=== PATIENT | female | born 1995 | race Caucasian/White ===

== ENCOUNTER 2021-09-17 11:04 | Emergency (ER) | payer OTHER, SELFPAY ==
[2021-09-17 11:22] VITALS: BP 116/68; PULSE 60; RESP 14; TEMP 36.8; O2SAT 98; BMI 25.8
[2021-09-17 12:35] VITALS: BP 117/64; PULSE 47; O2SAT 100
--- NOTE | 2021-09-17 13:15 | ED_ITS ---
HPI - Wound/Laceration <Anthony Braun PA-C - Last Filed: 09/17/21 19:12> General Chief Complaint: Wound/Laceration Stated Complaint: Hit left eye with piece of handle Time Seen by Provider: 09/17/21 12:54 Source: patient Mode of arrival: Ambulatory History of Present Illness HPI narrative: Patient is a 25-year-old female presenting to the emergency department today for an evaluation of a left eyebrow laceration. Patient states that she was struck on the left eyebrow by a metal handle today while at work at approximately 1000 today. 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 She states she did not lose consciousness as a result of the injury and denies pain or injury elsewhere. Of note, patient denies being anticoagulated daily. No fevers, chills, chest pain, cough, shortness of breath, nausea, vomiting, diarrhea, dysuria, hematuria, abdominal pain, constipation, changes in vision, eye irritation, or any other concerning symptoms reported. No further concerns were voiced at this time. Related Data Allergies Allergy/AdvReac Type Severity Reaction Status Date / Time No Known Drug Allergies Allergy Verified 09/17/21 11:22 Review of Systems <Anthony Braun PA-C - Last Filed: 09/17/21 19:12> Constitutional Constitutional: Denies chills, Denies fatigue, Denies fever(s), Denies frequent falls, Denies lethargy and Denies weakness Eyes Eyes: Denies change in vision, Denies eye discharge, Denies irritation and Denies loss of vision ENT Ears, Nose, Mouth, and Throat: Denies dizziness and Denies neck pain Cardiovascular Cardiovascular: Denies chest pain, Denies irregular heart rhythm, Denies lightheadedness, Denies palpitations, Denies dyspnea, Denies dyspnea on exertion and Denies orthopnea Respiratory Respiratory: Denies cough, Denies dyspnea, Denies dyspnea on exertion and Denies wheezing Gastrointestinal Gastrointestinal: Denies abdominal pain, Denies change in bowel habits, Denies diarrhea, Denies nausea and Denies vomiting Genitourinary Genitourinary: Denies hematuria, Denies flank pain, Denies urinary incontinence and Denies urinary urgency Musculoskeletal Musculoskeletal: Denies back pain, Denies muscle weakness, Denies neck pain, Denies numbness and Denies tingling Integumentary/Breasts Skin/Breast: Denies pruritus, Reports erythema (And swelling to left eyebrow and upper eyelid), Denies rash and Reports wounds (Laceration to left eyebrow) Neurologic Neurologic: Denies behavioral changes, Denies confusion, Denies dizziness, Denies frequent falls, Denies loss of vision, Denies numbness, Denies tingling and Denies weakness Psychiatric Psychiatric: Denies behavioral changes and Denies confusion Endocrine Endocrine: Denies fatigue and Denies palpitations Allergic/Immunologic Allergic/Immunologic: Denies wheezing Patient History <Anthony Braun PA-C - Last Filed: 09/17/21 19:12> Social History Smoking Status: Current every day smoker Smoking Status: Current every day smoker tobacco type: vaping alcohol intake frequency: a few times a week Substance Use Type: does not use Exam <Anthony Braun PA-C - Last Filed: 09/17/21 19:12> Narrative Exam Narrative: GENERAL: 25 year old patient appears stated age. Well-developed patient, in no acute distress. HEAD: Atraumatic. Normocephalic. EYES: Pupils equal round and reactive. Extraocular motions intact. No scleral icterus. Mild scleral injection appreciated along the medial aspect of the left eye. Swelling and erythema noted to the left upper eyelid. No signs of globe rupture on gross examination. ENT: Nose without bleeding, purulent drainage. Throat without erythema, tonsillar hypertrophy or exudate. Airway patent. NECK: Trachea midline. Non tender CARDIOVASCULAR: Regular rate and rhythm without murmurs, gallops, or rubs. RESPIRATORY: Clear to auscultation. Breath sounds equal bilaterally. No wheezes, rales, or rhonchi. GASTROINTESTINAL: Abdomen soft, non-tender, nondistended. EXTREMITIES: No edema or joint tenderness. BACK: Nontender without deformity or crepitance. No flank tenderness. NEURO: AOx3. SKIN: No rash of visible areas. Erythema and swelling noted over the left upper eyelid and left eyebrow. Small superficial linear laceration noted lateral to the left eyebrow with surrounding dried blood. No active discharge appreciated. Initial Vital Signs Initial Vital Signs: Vital Signs Temperature 98.3 F 09/17/21 11:22 Pulse Rate 60 09/17/21 11:22 Respiratory Rate 14 09/17/21 11:22 Blood Pressure 116/68 09/17/21 11:22 Pulse Oximetry 98 09/17/21 11:22 <Stacy Hanna Rashmi, DO - Last Filed: 09/20/21 08:38> Narrative Exam Narrative: GENERAL: 25 year old patient appears stated age. Well-developed patient, in no acute distress. HEAD: Atraumatic. Normocephalic. EYES: Pupils equal round and reactive. Extraocular motions intact. No scleral icterus. Mild scleral injection appreciated along the medial aspect of the left eye. Swelling and erythema noted to the left upper eyelid. No signs of globe rupture on gross examination. ENT: Nose without bleeding, purulent drainage. Throat without erythema, tonsillar hypertrophy or exudate. Airway patent. NECK: Trachea midline. Non tender CARDIOVASCULAR: Regular rate and rhythm without murmurs, gallops, or rubs. RESPIRATORY: Clear to auscultation. Breath sounds equal bilaterally. No wheezes, rales, or rhonchi. GASTROINTESTINAL: Abdomen soft, non-tender, nondistended. EXTREMITIES: No edema or joint tenderness. BACK: Nontender without deformity or crepitance. No flank tenderness. NEURO: AOx3. SKIN: No rash of visible areas. Erythema and swelling noted over the left upper eyelid and left eyebrow. Small superficial linear laceration noted lateral to the left eyebrow with surrounding dried blood. No active discharge appreciated. GEN: well nourished, well appearing female, alert and oriented x 3, patient appears to be in mild distress. HEENT: Atraumatic, pupils are equal round reactive to light, patient has left periorbital ecchymosis, she has extraocular movements intact but has pain of the left eye with a forward deviation, no lag or nystagmus appreciated, patient has superficial laceration of the brow as well as upper lid that does not gape and i s intact with no subcutaneous exposure. Patient does have tenderness of the left maxillary region as well with no ecchymosis or skin change. Throat is clear without any exudates, erythema, tonsillar enlargement or uvular deviation NEURO:CN 2-12 intact, sensation normal Initial Vital Signs Initial Vital Signs: Vital Signs Temperature 98.3 F 09/17/21 11:22 Pulse Rate 60 09/17/21 11:22 Respiratory Rate 14 09/17/21 11:22 Blood Pressure 116/68 09/17/21 11:22 Pulse Oximetry 98 09/17/21 11:22 Course <Anthony Braun PA-C - Last Filed: 09/17/21 19:12> Course Course Narrative: 400 mg oral ibuprofen administered. CT of the orbits obtained. Orders Ordered: Discontinued Medications Ibuprofen (Ibuprofen 400 Mg Tablet) 400 mg PO NOW ONE Stop: 09/17/21 13:14 Last Admin: 09/17/21 13:24 Dose: 400 mg Documented by: MED Vital Signs Vital signs: Vital Signs - 8 hr 09/17/21 11:22 09/17/21 12:35 09/17/21 14:59 Temperature 98.3 F Pulse Rate 60 47 L 45 L Respiratory Rate 14 Blood Pressure 116/68 117/64 117/69 Pulse Oximetry 98 100 99 09/17/21 15:00 Temperature Pulse Rate 47 L Respiratory Rate Blood Pressure Pulse Oximetry 100 <Stacy Caraballo DO - Last Filed: 09/20/21 08:38> Orders Ordered: Discontinued Medications Ibuprofen (Ibuprofen 400 Mg Tablet) 400 mg PO NOW ONE Stop: 09/17/21 13:14 Last Admin: 09/17/21 13:24 Dose: 400 mg Documented by: MED Vital Signs Vital signs: Vital Signs - 8 hr 09/17/21 11:22 09/17/21 12:35 09/17/21 14:59 Temperature 98.3 F Pulse Rate 60 47 L 45 L Respiratory Rate 14 Blood Pressure 116/68 117/64 117/69 Pulse Oximetry 98 100 99 09/17/21 15:00 Temperature Pulse Rate 47 L Respiratory Rate Blood Pressure Pulse Oximetry 100 MDM - Wound/Laceration <Anthony Braun PA-C - Last Filed: 09/17/21 19:12> Imaging Data CT scan - orbits: Radiologist's Impression: PROCEDURE:? CT ORBIT BI WO CON ? INDICATIONS:? Left eye trauma ? TECHNIQUE:? Noncontrast 2.5 mm axial images acquired through the orbits, with coronal and sagittal reformats.? For radiation dose reduction, the following was used:? automated exposure control, adjustment of mA and/or kV according to patient size.? ? COMPARISON:? None. ? FINDINGS:? Image quality:? Excellent.? ? Orbits:? Globes are symmetrical.? No metallic foreign bodies.? The optic nerves are normal in size.? No retrobulbar masses or fat abnormalities.? The extra-ocular muscles are normal and symmetrical in appearance.? Lacrimal glands are normal in size.? Optic chiasm is normal.? Mild left periorbital soft tissue edema is present. ? Intracranial:? Visualized portions of the cerebral hemispheres, brainstem, and spinal cord are normal.? ? Bones and sinuses:? Visualized calvarium and facial bones appear intact.? Visualized sinuses and mastoids are clear.? ? IMPRESSION:? ? Mild left periorbital soft tissue edema is present.? No visualized fracture.? Globe is intact. ? ? Dictated by: Angie Lance M.D. on 09/17/2021 at 14:17 ? ? Approved by: Angie Lance M.D. on 09/17/2021 at 14:28? MDM Narrative Medical decision making narrative: Differential diagnosis to consider but not limited to orbit fracture verses globe rupture versus superficial laceration versus deep tissue laceration versus abscess versus corneal abrasion versus corneal ulcer. Patient informed her that the laceration does not need to be closed with sutures in the emergency department. I also discussed results of CT scan informed her that there is no sign of fracture. I urged the patient to keep the laceration site clean and dry. She expresses understanding and agrees to plan. She states that this time she is comfortable being discharged home and is stable for discharge. Strict return precautions were discussed with the patient prior to discharge. Discharge Plan Departure Patient Disposition: Home Clinical Impression: Laceration of eyebrow, left, Closed head injury Instructions: DI for Closed Head Injury Activity Restrictions/Additional Instructions: *You have been diagnosed with left eyebrow laceration, closed head injury *What to do: *Please continue to take your regular medications as directed. [ ] New medication prescriptions sent to your pharmacy: [ ] [ ] New medication written as a paper prescription [X] No new medications given You were evaluated in the emergency department today for a laceration sustained to her left eyebrow. Physical examination was very reassuring and does not appear that the laceration would require closure with sutures. I recommend keeping the laceration site clean with soap and water. Tylenol and ibuprofen can be used as needed for pain management. I recommend that you follow-up with your primary care provider within the next 2-3 days for further evaluation and management. Please do not hesitate to return to the emergency department if you experience worsening pain, confusion, behavior abnormalities, loss of consciousness, discharge from the laceration site, fever, or any other concerning symptoms. *Please follow up with your primary care provider in 2-3 days, call for an appointment. Let them know you were seen in the Emergency Department and that we ask that you be seen in follow up. We will electronically transmit a record of today's note if your PCP is in our system *If you do not have a primary care provider please contact the [facility] Resource line at [phone]. They will ask some questions about your medical history and help get you set up with a doctor in the community. *Return to Emergency Department if you should have any new, worsening or concerning symptoms, such as fever greater than 101 F, shaking chills, worsening pain, persistent vomiting or other bothersome symptoms. <Stacy Caraballo, DO - Last Filed: 09/20/21 08:38> Cosign ED Attending Coskyleature Attestation: I was immediately available in the department for consultation. Documentation has been reviewed. Case was discussed with myself. Patient was seen and evaluated by myself independently. Patient has tenderness of the left maxillary region and upper portion with exam findings so CT orbits was obtained with no fracture.
[2021-09-17] MEDS: IBUPROFEN 400 MG TABLET PO (13:24)
--- NOTE | 2021-09-17 13:37 | DI.CT.S_ITS ---
PROCEDURE: CT ORBIT BI WO CON INDICATIONS: Left eye trauma TECHNIQUE: Noncontrast 2.5 mm axial images acquired through the orbits, with coronal and sagittal reformats. For radiation dose reduction, the following was used: automated exposure control, adjustment of mA and/or kV according to patient size. COMPARISON: None. FINDINGS: Image quality: Excellent. Orbits: Globes are symmetrical. No metallic foreign bodies. The optic nerves are normal in size. No retrobulbar masses or fat abnormalities. The extra-ocular muscles are normal and symmetrical in appearance. Lacrimal glands are normal in size. Optic chiasm is normal. Mild left periorbital soft tissue edema is present. Intracranial: Visualized portions of the cerebral hemispheres, brainstem, and spinal cord are normal. Bones and sinuses: Visualized calvarium and facial bones appear intact. Visualized sinuses and mastoids are clear. IMPRESSION: Mild left periorbital soft tissue edema is present. No visualized fracture. Globe is intact. Dictated by: Angie Lance M.D. on 09/17/2021 at 14:17 Approved by: Angie Lance M.D. on 09/17/2021 at 14:28
[2021-09-17 14:59] VITALS: BP 117/69; PULSE 45; O2SAT 99
[2021-09-17 15:00] VITALS: PULSE 47; O2SAT 100
== END 2021-09-17 15:03 | disposition home or self-care (01) ==
PROVIDERS: Emergency Provider Physician Assistant
DX: S01.112A Laceration without foreign body of left eyelid and periocular area, initial encounter (principal); S09.8XXA Other specified injuries of head, initial encounter; W22.8XXA Striking against or struck by other objects, initial encounter
CPT/HCPCS: 70480; 99284